=== PATIENT | female | born 1995 | race Caucasian/White ===

== ENCOUNTER 2018-01-01 19:17 | Observation (INO) ==
--- NOTE | 2018-01-01 19:23 | Emergency Department Note ---
Disposition Clinical Impression: Hyperemesis arising during Disposition: Admitted As Inpatient Condition: Good General Adult HPI - General Stated complaint: nausea/vomiting Source: patient Nursing Notes Reviewed: Yes Vital Signs Reviewed: Yes - History of Present Illness HPI Narrative: 22 year old female who is 15 weeks , , with history of PCOS, Endometriosis, and Musculoskeletal disorder (states she does not know the name of the diagnosis, however her tendons and muscles in her foot detached at age 10 ; she was evaluated by a physician when she was younger and was not given a final diagnosis; her ARBORIST REPRESENTATIVE states as a result this is a high risk and there is a risk her placenta may detach). Patient was evaluated in [place] and again at [place] ED for 6-8 episodes of nonbloody, nonbilious vomiting for the past 2 days, which is unrelated to eating. Patient's SOCK MENDER was contacted by the ED physician yesterday, who suggested admission to the hospital, however patient reported feeling better and requested to be discharged. States she vomited 6 times today, and is unable to keep any liquids or foods down. Also reports "feeling dehydrated", reports having a dry mouth, and urinating much less than usual (usually urinates every 30 minutes, and is now urinating every 1.5 hours with decreased volume and a dark color; denies hematuria, dysuria, or suprapubic pain; She also reports having a fever of 102.3F 2 nights ago, which resolved spontaneously; and a cough, productive of yellow sputum for the past 3 days. Did not receive any imaging. Patient denies chills, myalgias, arthralgias; diarrhea, hematochezia, melena; - Related Data Home Medications Medication Instructions Recorded Confirmed Pnv with Ca,No.72/Iron/FA [Pnv 1 each PO DAILY 12/31/17 01/01/18 Plus Multivit Tab] Promethazine [Phenergan] 25 mg PO Q6HR 12/31/17 01/01/18 Previous Rx's Medication Instructions Recorded Ondansetron ODT [Zofran ODT] 4 mg SL Q6HR PRN #14 tab.rapdis 12/31/17 Allergies Allergy/AdvReac Type Severity Reaction Status Date / Time clindamycin Allergy Difficulty Verified 01/01/18 19:20 Swallowing Minocycline Allergy Rash Verified 01/01/18 19:20 Penicillins [PCN] Allergy Rash Verified 01/01/18 19:20 All systems ED: reviewed and negative except as stated. Review of Systems: As Per HPI Constitutional: Reports: fever Cardiovascular: Denies: chest pain Respiratory: Reports: cough, sputum production. Denies: dyspnea, wheezes Gastrointestinal: Reports: abdominal pain, nausea, vomiting. Denies: hematemesis Genitourinary: Denies: urgency, dysuria, frequency, hematuria Musculoskeletal: Denies: back pain, neck pain Integumentary: Denies: rash Neurological: Denies: headache Past Medical History - Past Medical History Medical history: Reports: other Psychiatric history: Reports: depression SOCK MENDER history: Reports: endometriosis, polycystic ovary syndrome - Social History Smoking Status: Current every day smoker Smokeless Tobacco Status: No Alcohol use: Reports: none Drug use: Reports: none Physical Exam - General Limitations: no limitations General appearance: alert, in no apparent distress - Head Head exam: normocephalic - Eye Eye exam: Present: EOMI. Absent: scleral icterus - ENT ENT exam: mucous membranes dry - Neck Neck exam: Present: trachea midline - Chest Chest inspection: Present: symmetric chest wall rise - Respiratory Respiratory exam: Present: normal lung sounds bilaterally. Absent: respiratory distress, accessory muscle use - Cardiovascular Cardiovascular exam: Present: regular rate, normal rhythm, normal heart sounds - Abdominal Exam Abdominal exam: Present: soft, tenderness. Absent: distention, guarding, rebound, rigidity Abdominal tenderness: Present: epigastrium, mild - Extremities Exam Extremities exam: Present: normal capillary refill. Absent: pedal edema - Back Exam Back exam: Present: full ROM - Neurological Exam Neurological exam: Present: alert, oriented X3 - Psychiatric Psychiatric exam: Present: normal affect, normal mood - Skin Skin exam: Present: warm, dry, intact Course Vital Signs Temperature 98.5 F 01/01/18 19:20 Pulse Rate 87 01/01/18 19:20 Respiratory Rate 16 01/01/18 19:20 Blood Pressure 114/87 01/01/18 19:20 O2 Sat by Pulse Oximetry 97 01/01/18 19:20 Temperature 98.5 F 01/01/18 19:20 Pulse Rate 88 01/01/18 21:04 Respiratory Rate 16 01/01/18 21:04 Blood Pressure 105/55 08/20/18 21:04 O2 Sat by Pulse Oximetry 100 01/01/18 21:04 Oxygen Delivery Oxygen Delivery Room Air Medical Decision Making - MDM Narrative Medical decision making narrative: 22-year-old who is currently 15 weeks presents emergency department with concern for nausea, vomiting, cough, fever, sputum production. She is on his hyperemesis gravidarum yesterday. She was offered admission yesterday. This time, we will obtain a chest x-ray with shield due to possible concern for pneumonia. I did discuss exposure of radiation to patient. Patient will be getting Zofran and fluids here in the emergency department. She will also providing a urine sample. We will also be obtaining CBC, CMP, lipase. Patient currently requesting admission. All labs are within normal limits. Specifically, patient did not have any electrolyte abnormalities or an elevated hepatic transaminases. Chest x-ray did not reveal any evidence of pneumonia. I spoke with Maria A Izaguirre with SOCK MENDER on the phone. She agreed to be consulted on the case and had no further recommendations at this time. Patient admitted to the hospitalist. Patient agrees to plan. Hemodynamically stable and not in any acute distress at time of admission. Chest X-Ray 01/01/18 19:37 IMPRESSION: No acute findings D/ / Dang Willsi MD / Dang Willis MD Interpreting Provider: Dang Willis MD Vital Signs Temperature 98.5 F 01/01/18 19:20 Pulse Rate 87 01/01/18 19:20 Respiratory Rate 16 01/01/18 19:20 Blood Pressure 114/87 01/01/18 19:20 O2 Sat by Pulse Oximetry 97 01/01/18 19:20 Temperature 98.5 F 01/01/18 19:20 Pulse Rate 88 01/01/18 21:04 Respiratory Rate 16 01/01/18 21:04 Blood Pressure 105/55 01/01/18 21:04 O2 Sat by Pulse Oximetry 100 01/01/18 21:04 Oxygen Delivery Oxygen Delivery Room Air - Lab Data Result diagrams: 01/01/18 19:32 01/01/18 19:32 Lab Results 08/20/18 08/20/18 08/20/18 Range/Units 19:32 19:32 20:27 WBC 8.0 (4.3-11.1) K/mcL RBC 4.37 (3.82-4.97) M/mcL Hgb 12.6 D (11.5-15.4) g/dL Hct 36.9 (35.3-44.9) % MCV 84.4 (83.0-100.0) fL MCH 28.8 (28.0-33.3) pg MCHC 34.1 (31.6-35.5) g/dL RDW 14.9 H (11.5-14.5) % Plt Count 198 (140-400) K/mcL MPV 11.0 (9.4-12.4) fL Immature Gran % 0.4 (0-4) % Seg Neutrophils % 70.4 % Lymphocytes % 19.7 % Monocytes % 7.7 % Eosinophils % 1.4 % Basophils % 0.4 % Neutrophils # 5.6 (1.6-8.9) K/mcL Lymphocytes # 1.6 (0.6-4.6) K/mcL Monocytes # 0.6 (0.0-1.3) K/mcL Eosinophils # 0.1 (0.0-0.6) K/mcL Basophils # 0.0 (0.0-0.2) K/mcL Sodium 135 L (136-145) mEq/L Potassium 3.6 (3.5-5.1) mEq/L Chloride 108 H (98-107) mEq/L Carbon Dioxide 20 L (23-29) mEq/L BUN 6 (6-20) mg/dL Creatinine 0.37 L (0.60-1.20) mg/dL Est GFR ( Amer) > 60 (> 60) Est GFR (Non-Af Amer) > 60 (> 60) BUN/Creatinine Ratio 16 (6-26) Glucose 101 (70-105) mg/dL Calculated Osmolality 278 L (280-300) Calcium 9.3 (8.6-10.3) mg/dL Total Bilirubin 0.3 (0.3-1.0) mg/dL AST 25 (13-39) Units/L ALT 28 (7-52) Units/L Alkaline Phosphatase 68 (34-104) Units/L Serum Total Protein 6.8 (6.4-8.9) g/dL Albumin 3.7 (3.5-5.7) g/dL Globulin 3.1 (2.4-3.5) g/dL Albumin/Globulin Ratio 1.2 (1.1-2.2) Lipase 16 (11-82) Units/L Urine Color Dark Yellow (Yellow) Urine Clarity Cloudy A (Clear) Urine pH 6.0 (5.0-8.0) pH Units Ur Specific [place] > 1.030 H (1.010-1.025) Urine Protein Trace (Neg-Trace) mg/dL Urine Glucose (UA) Normal (Normal) mg/dL Urine Ketones >=160 H (Negative) mg/dL Urine Blood Negative (Negative) Urine Nitrite Negative (Negative) Urine Bilirubin Small H (Negative) Urine Urobilinogen Normal (Normal) mg/dL Ur Leukocyte Esterase Small H (Negative) Urine Microscopic RBC 0-3 (0-3) per hpf Urine Microscopic WBC 15-30 H (0-3) per hpf Ur Squamous Epith Cells Many H (None-Few) per lpf Urine Bacteria Many H (None-Few) per hpf Hyaline Casts Few (None-Few) per lpf Urine Mucus Many H (Few) Ur Culture Indicated? NO. A (NO) Urine Test (Negative) 01/01/18 Range/Units 20:27 WBC (4.3-11.1) K/mcL RBC (3.82-4.97) M/mcL Hgb (11.5-15.4) g/dL Hct (35.3-44.9) % MCV (83.0-100.0) fL MCH (28.0-33.3) pg MCHC (31.6-35.5) g/dL RDW (11.5-14.5) % Plt Count (140-400) K/mcL MPV (9.4-12.4) fL Immature Gran % (0-4) % Seg Neutrophils % % Lymphocytes % % Monocytes % % Eosinophils % % Basophils % % Neutrophils # (1.6-8.9) K/mcL Lymphocytes # (0.6-4.6) K/mcL Monocytes # (0.0-1.3) K/mcL Eosinophils # (0.0-0.6) K/mcL Basophils # (0.0-0.2) K/mcL Sodium (136-145) mEq/L Potassium (3.5-5.1) mEq/L Chloride (98-107) mEq/L Carbon Dioxide (23-29) mEq/L BUN (6-20) mg/dL Creatinine (0.60-1.20) mg/dL Est GFR ( Amer) (> 60) Est GFR (Non-Af Amer) (> 60) BUN/Creatinine Ratio (6-26) Glucose (70-105) mg/dL Calculated Osmolality (280-300) Calcium (8.6-10.3) mg/dL Total Bilirubin (0.3-1.0) mg/dL AST (13-39) Units/L ALT (7-52) Units/L Alkaline Phosphatase (34-104) Units/L Serum Total Protein (6.4-8.9) g/dL Albumin (3.5-5.7) g/dL Globulin (2.4-3.5) g/dL Albumin/Globulin Ratio (1.1-2.2) Lipase (11-82) Units/L Urine Color (Yellow) Urine Clarity (Clear) Urine pH (5.0-8.0) pH Units Ur Specific [place] (1.010-1.025) Urine Protein (Neg-Trace) mg/dL Urine Glucose (UA) (Normal) mg/dL Urine Ketones (Negative) mg/dL Urine Blood (Negative) Urine Nitrite (Negative) Urine Bilirubin (Negative) Urine Urobilinogen (Normal) mg/dL Ur Leukocyte Esterase (Negative) Urine Microscopic RBC (0-3) per hpf Urine Microscopic WBC (0-3) per hpf Ur Squamous Epith Cells (None-Few) per lpf Urine Bacteria (None-Few) per hpf Hyaline Casts (None-Few) per lpf Urine Mucus (Few) Ur Culture Indicated? (NO) Urine Test Positive A (Negative)
[2018-01-01] MEDS ORDERED: 0.9 % Sodium Chloride 1,000 ML IVC ONE ×2 (19:25→20:39)
[2018-01-01] MEDS ORDERED: Ondansetron 4 MG/2 ML VIAL IVP ONE (19:25)
--- NOTE | 2018-01-01 19:34 | Emergency Department Note ---
Disposition Clinical Impression: Hyperemesis arising during Disposition: Still a Patient General Adult HPI - General Chief complaint: ED Abdominal Pain Stated complaint: nausea/vomiting Time Seen by Provider: 01/01/18 19:29 Source: patient Limitations: no limitations - History of Present Illness Pain Scale: 6 - Related Data Home Medications Medication Instructions Recorded Confirmed Pnv with Ca,No.72/Iron/FA [Pnv 1 each PO DAILY 12/31/17 01/01/18 Plus Multivit Tab] Promethazine [Phenergan] 25 mg PO Q6HR 12/31/17 01/01/18 Previous Rx's Medication Instructions Recorded Ondansetron ODT [Zofran ODT] 4 mg SL Q6HR PRN #14 tab.rapdis 12/31/17 Allergies Allergy/AdvReac Type Severity Reaction Status Date / Time clindamycin Allergy Difficulty Verified 01/01/18 19:20 Swallowing Minocycline Allergy Rash Verified 01/01/18 19:20 Penicillins [PCN] Allergy Rash Verified 01/01/18 19:20 Past Medical History - Past Medical History Medical history: Reports: other Psychiatric history: Reports: depression DRILL SERGEANT history: Reports: endometriosis, polycystic ovary syndrome - Social History Smoking Status: Current every day smoker Smokeless Tobacco Status: No Alcohol use: Reports: none Drug use: Reports: none Physical Exam - General Limitations: no limitations General appearance: alert, in no apparent distress Course - Reevaluation(s) Reevaluation #1: ED ATTESTATION NOTE: I examined this patient and my medical decision-making was reviewed with the Resident Physician/FIELD RADIO OPERATOR/PA/Student. I have personally performed a face to face evaluation on this patient & I agree with the documented findings, disposition and treatment plan as described except to the extent set forth below. Patient was seen with emergency medicine resident Gregg Cisneros please see copy of his note for details of this encounter Briefly: 21-year-old female 15 weeks seen twice for one for URI 1 for vomiting and nausea was offered admission yesterday declined returns with similar and worsening symptoms such status time Dr. Ordoñez is her OB. Patient denies fevers chills shortness breath or chest pain. Patient appears clinically dehydrated. Patient will get IV fluids anti-medics screening labs and admission. Admission disposition pending Time: 19:31 Vital Signs Temperature 98.5 F 01/01/18 19:20 Pulse Rate 87 01/01/18 19:20 Respiratory Rate 16 01/01/18 19:20 Blood Pressure 114/87 01/01/18 19:20 O2 Sat by Pulse Oximetry 97 01/01/18 19:20 Temperature 98.5 F 01/01/18 19:20 Pulse Rate 87 01/01/18 19:20 Respiratory Rate 16 01/01/18 19:20 Blood Pressure 114/87 01/01/18 19:20 O2 Sat by Pulse Oximetry 97 01/01/18 19:20 Oxygen Delivery Oxygen Delivery Room Air
[2018-01-01 19:45] LABS: Basophils % 0.4 %; Eosinophils # 0.1 K/mcL (0.0-0.6); Eosinophils % 1.4 %; Hematocrit 36.9 % (35.3-44.9); Immature Granulocytes % 0.4 % (0-4); Lymphocytes # 1.6 K/mcL (0.6-4.6); Lymphocytes % 19.7 %; Mean Corpuscular HGB Conc 34.1 g/dL (31.6-35.5); Mean Corpuscular Hemoglobin 28.8 pg (28.0-33.3); Mean Corpuscular Volume 84.4 fL (83.0-100.0); Monocytes # 0.6 K/mcL (0.0-1.3); Monocytes % 7.7 %; Neutrophils # 5.6 K/mcL (1.6-8.9); Platelet Count 198 K/mcL (140-400); Red Blood Count 4.37 M/mcL (3.82-4.97); Red Cell Distribution Width 14.9 % (11.5-14.5); Segmented Neutrophils % 70.4 %
[2018-01-01 19:46] LABS: Hemoglobin 12.6 g/dL (11.5-15.4)
[2018-01-01 20:11] LABS: Alanine Aminotransferase 28 Units/L (7-52); Albumin 3.7 g/dL (3.5-5.7); Albumin/Globulin Ratio 1.2 (1.1-2.2); Alkaline Phosphatase 68 Units/L (34-104); Aspartate Amino Transferase 25 Units/L (13-39); BUN/Creatinine Ratio 16 (6-26); Bilirubin,Total 0.3 mg/dL (0.3-1.0); Blood Urea Nitrogen 6 mg/dL (6-20); Calcium 9.3 mg/dL (8.6-10.3); Carbon Dioxide 20 mEq/L (23-29); Chloride 108 mEq/L (98-107); Globulin 3.1 g/dL (2.4-3.5); Glucose 101 mg/dL (70-105); Lipase 16 Units/L (11-82); Osmolality,Calculated 278 (280-300); Potassium 3.6 mEq/L (3.5-5.1); Sodium 135 mEq/L (136-145); Total Protein 6.8 g/dL (6.4-8.9); eGFR For Non-African Americans > 60 (> 60)
[2018-01-01 20:37] LABS: Bilirubin,Urine Small (Negative); Blood,Urine Negative (Negative); Clarity,Urine Cloudy (Clear); Color,Urine Dark Yellow (Yellow); Glucose,Urine (UA) Normal (Normal); Ketones,Urine >=160 mg/dL (Negative); Leukocyte Esterase,Urine Small (Negative); Nitrite,Urine Negative (Negative); Protein,Urine Trace mg/dL (Neg-Trace); Specific Gravity,Urine > 1.030 (1.010-1.025); Urobilinogen,Urine Normal (Normal)
[2018-01-01 20:39] LABS: Bacteria,Urine Many per hpf (None-Few); Hyaline Casts,Urine Few per lpf (None-Few); Squamous Epithelial Cell,Urine Many per lpf (None-Few); WBC,Urine 15-30 per hpf (0-3)
[2018-01-01 20:52] LABS: RBC,Urine 0-3 per hpf (0-3)
[2018-01-01 20:53] LABS: Mucus,Urine Many (Few)
--- NOTE | 2018-01-01 21:45 | Internal Med History&Physical ---
Date of Encounter: 01/01/18 Time of Encounter: 21:40 Internal Medicine - H&P: HPI Chief complaint: vomiting Admitted From: Home Plans for Post Hospital Care: Home History of present illness: Ms. Drew is a 22 year old lady with a past medical history of depression, who is currently at 15 weeks gestation, tobacco dependence and continues to smoke now during her who presents with 3 days of nausea, vomiting and oral intake intolerance. She states she was seen at [place] [facility] prior to coming here for these symptoms where she was prescribed "Robitussin w/ codeine" as she also complained of URI symptoms. She states that her vomiting has been incessant and has not had efficacy with oral Phenergan and Zofran that were prescribed to her. Here she was started on IVF and OB consult requested in the ER. At this time she denies being in pain but has some upper abdominal discomfort from the plethora of vomiting episodes. She denies noticing blood in the content. No diarrhea, dysuria, fever or chills associated. She was given IV anti-emetics and started on IVF w/ multivitamins for resuscitation and is admitted for ongoing observation. Past Med Surg Social Fam HX - Past Medical History Medical history: no medical history, other Additional medical history: orthostatic hypotension, PCOS, endometriaosis, "muscular skelater disorder" Psychiatric history: depression - Past Surgical History Additional surgical history: Left ankle reconstruction. Left wrist repair - Social History Smoking Status: Current every day smoker Smokeless Tobacco Status: No Alcohol use: none Drug use: none Internal Medicine - H&P: Meds Ondansetron ODT [Zofran ODT] 4 mg SL Q6HR PRN #14 tab.rapdis 12/31/17 [Rx] Pnv with Ca,No.72/Iron/FA [Pnv Plus Multivit Tab] 1 each PO DAILY 12/31 [History] Promethazine [Phenergan] 25 mg PO Q6HR 12/31/17 [History] 3 Allergy/AdvReac Type Severity Reaction Status Date / Time clindamycin Allergy Difficulty Verified 01/01/18 19:20 Swallowing Minocycline Allergy Rash Verified 01/01/18 19:20 Penicillins [PCN] Allergy Rash Verified 01/01/18 19:20 All Systems PM: A 10-system review of systems was performed and is negative for pertinent findings except as documented above in the HPI. - Constitutional Vitals: Temp Pulse Resp BP Pulse Ox 98.5 F 88 16 105/55 100 01/01/18 19:20 01/01/18 21:04 01/01/18 21:04 01/01/18 21:04 01/01/18 21:04 Exam: Vitals: Reviewed General: Well developed, comfortable in bed in NAD Skin: Warm and supple. HEENT: Moist mucous membranes. No conjunctivae pallor. Neck: No lymphadenopathy. No JVD. No carotid bruits. No palpable thyroid. Chest: Normal thoracic expansion. Normal breath sounds. Clear to auscultation. Heart: Normal S1 & S2; rhythmic. No rubs or murmurs. Abdomen: Non-distended, soft and mild discomfort on LUQ palpation. No peritoneal reaction. Extremities: No clubbing, cyanosis or edema. No calf tenderness. Normal distal pulses. Neurological: Awake, alert and oriented to person, place and time. No focal deficits. Psych: Affect appropriate. Internal Med - H&P Results - Labs CBC & Chem 7: 01/01/18 19:32 01/01/18 19:32 - Assessment and plan (1) Hyperemesis arising during Current Visit: Yes Status: Acute Assessment and plan: Uncomplicated noting the abscence of electrolytic imbalances and no evidence of KAMILLE. Will keep up with fluid losses via IVF and provide ondansetron or promethazine as needed. OB to evaluate in the morning. (2) Current Visit: Yes Status: Chronic Assessment and plan: Next ObGyn visit within 10 days. No complications thus far. Seen to have pyuria. Will send a urine culture to assess for asymptomatic bacteriuria which would be an indication for antimicrobial treatment. If negative, no treatment needed. Continue vitamins. Qualifiers: Weeks of gestation: 15 weeks Qualified Code(s): Z3A.15 - 15 weeks gestation of (3) Upper respiratory infection Current Visit: Yes Status: Acute Assessment and plan: Symptoms do not appear active at this time. Will continue to monitor. Symptomatic treatment as needed. Qualifiers: URI type: unspecified viral URI Qualified Code(s): J06.9 - Acute upper respiratory infection, unspecified (4) Tobacco dependence Current Visit: Yes Status: Chronic Assessment and plan: Counseled extensively on this noxious habit and the negative effects on her and her baby's health. Resources made available. - Time Spent With Patient Total time spent is greater than 50% in coordination of care (as documented) at patient's floor/unit and/or counseling patient: 25 - 35 minutes
[2018-01-01 22:10] LABS: Basophils % 0.4 %; Eosinophils # 0.1 K/mcL (0.0-0.6); Eosinophils % 1.2 %; Hematocrit 33.1 % (35.3-44.9); Immature Granulocytes % 0.3 % (0-4); Lymphocytes # 1.6 K/mcL (0.6-4.6); Mean Corpuscular HGB Conc 32.6 g/dL (31.6-35.5); Mean Corpuscular Hemoglobin 28.4 pg (28.0-33.3); Mean Corpuscular Volume 87.1 fL (83.0-100.0); Monocytes # 0.6 K/mcL (0.0-1.3); Monocytes % 7.5 %; Neutrophils # 5.1 K/mcL (1.6-8.9); Platelet Count 165 K/mcL (140-400); Red Cell Distribution Width 14.9 % (11.5-14.5); Segmented Neutrophils % 68.6 %
[2018-01-01 22:17] LABS: Hemoglobin 10.8 g/dL (11.5-15.4)
[2018-01-01] MEDS: Famotidine 20 MG/2 ML VIAL IVP SCH (22:17)
[2018-01-01] MEDS: Ondansetron 4 MG/2 ML VIAL IVP PRN (22:56)
[2018-01-01] MEDS: Thiamine (B-1) 100 MG, Folic Acid 1 MG, MVI, adult with vitamin K 10 ML in 0.9 % Sodi... IVPB SCH (23:44)
[2018-01-02] MEDS: *HR* Heparin 5,000 UNIT/ML VIAL SQ SCH ×2 (05:00→16:44)
[2018-01-02] MEDS: Famotidine 20 MG/2 ML VIAL IVP SCH ×2 (05:59→16:46)
[2018-01-02 06:34] LABS: BUN/Creatinine Ratio 11 (6-26); Blood Urea Nitrogen 4 mg/dL (6-20); Carbon Dioxide 19 mEq/L (23-29); Chloride 110 mEq/L (98-107); Glucose 80 mg/dL (70-105); Magnesium 1.7 mg/dL (1.6-2.6); Osmolality,Calculated 280 (280-300); Potassium 3.4 mEq/L (3.5-5.1); Sodium 137 mEq/L (136-145); eGFR For Non-African Americans > 60 (> 60)
[2018-01-02] MEDS: Ondansetron 4 MG/2 ML VIAL IVP PRN (06:44)
--- NOTE | 2018-01-02 06:56 | OB/GYN Consult Note ---
Date of Encounter: 01/02/18 Time of Encounter: 06:48 Assessment and Plan (1) 15 weeks gestation of Current Visit: Yes Status: Acute Patient admitted under hospitalist care anticipate discharge home today OB signed off at this time but available if needed (2) Tobacco dependence Current Visit: Yes Status: Chronic Smoking cessation discussed with patient along with risks related to (3) Cough Current Visit: No Status: Acute If cough continues patient can take OTC Robitussin (4) Nausea and vomiting Current Visit: No Status: Acute RX for Dicligis sent to patient's pharmacy May consider Reglan if nausea and vomiting continues Encouraged to maintain a clear liquid diet and advance as tolerated slowly Patient to follow up with Dr. Ordoñez as scheduled. Qualifiers: Vomiting type: cyclical vomiting Vomiting Intractability: non-intractable Qualified Code(s): G43.A0 - Cyclical vomiting, not intractable History of Present Illness Consult date: 01/02/18 Reason for consult: other (nause and vomiting, cough) Chief complaint: Nausea and Vomiting 15w1d gestational age History of present illness: Patient is a 22 year old b at 15w1d presented to ER , Patient was evaluated ER twice in past few days due to nausea and vomiting which is unrelated to eating. Patient was offered admission 2 days ago for management however, patient reported feeling better and requested to be discharged. States she vomited 6 times yesterday and once this morning. Patient reported "feeling dehydrated" yesterday but feels better after IV fluids this morning. Patient also reports having a fever of 102.3 a few days ago a cough with of yellow sputum for the past 3-4 days. Past Med Surg Social Fam HX - Past Medical History Source: patient Medical history: no medical history, other Additional medical history: orthostatic hypotension, PCOS, endometriosis, "muscular skeletal disorder" Psychiatric history: depression - Past Surgical History Additional surgical history: Left ankle reconstruction. Left wrist repair. laproscopy ovarian surgery. abcess removal of right under arm - Social History Smoking Status: Current every day smoker Packs per day: 1/3 Smokeless Tobacco Status: No Alcohol use: none Drug use: none - Family History Father Hx Family Endocrine Disorder: Yes Mother Hx Family Endocrine Disorder: Yes Medications and Allergies Ondansetron ODT [Zofran ODT] 4 mg SL Q6HR PRN #14 tab.rapdis 12/31/17 [Rx] Pnv with Ca,No.72/Iron/FA [Pnv Plus Multivit Tab] 1 each PO DAILY 12/31 [History] Promethazine [Phenergan] 25 mg PO Q6HR 12/31/17 [History] Doxylamine/Pyridoxine HCl [Diclegis Dr 10-10 mg Tablet] 2 each PO HS #60 tablet.dr 01/02/18 [Rx] 3 Allergy/AdvReac Type Severity Reaction Status Date / Time clindamycin Allergy Difficulty Verified 01/01/18 19:20 Swallowing Minocycline Allergy Rash Verified 01/01/18 19:20 Penicillins [PCN] Allergy Rash Verified 01/01/18 19:20 Review of Systems Constitutional: no chills, no fever(s), no headache(s) Cardiovascular: no chest pain, no edema Respiratory: cough (per HPI) Gastrointestinal: vomiting (reports last episode at 0630), no abdominal pain, no constipation, no diarrhea, no heartburn Genitourinary Female: no abnormal vaginal bleeding, no dysuria, no pelvic pain, no urinary frequency, no vaginal discharge, no vaginal odor, no vaginal pruritis Neurological: no dizziness, no headache(s) Exam - Vital Signs Vital signs: Initial Vital Signs Temp Pulse Resp BP Pulse Ox 98.5 F 87 16 114/87 97 01/01/18 19:20 01/01/18 19:20 01/01/18 19:20 01/01/18 19:20 01/01/18 19:20 - Constitutional Constitutional: well developed, well nourished, no acute distress, average body habitus - HEENT HEENT: Normocephaly, Mucus Membranes Moist - Neck Neck exam: full ROM, supple - Lungs Respiratory exam: CTAB - Cardiovascular Cardiovascular exam: RRR, +S1, +S2 - Abdomen Abdomen: Present: bowel sounds normal, gravid, non tender - Extremities Extremities exam: full ROM, normal capillary refill Deep Tendon Reflex Grade: 2+ Normal - Comments Comments: FHR 150 bpm per doppler Results Result Diagrams: 01/01/18 21:59 01/02/18 05:55 Abnormal lab results RBC 3.80 M/mcL (3.82-4.97) L 01/01/18 21:59 Hgb 10.8 g/dL (11.5-15.4) L D 01/01/18 21:59 Hct 33.1 % (35.3-44.9) L 01/01/18 21:59 RDW 14.9 % (11.5-14.5) H 18 21:59 Potassium 3.4 mEq/L (3.5-5.1) L 01/02/18 05:55 Chloride 110 mEq/L (98-107) H 01/02/18 05:55 Carbon Dioxide 19 mEq/L (23-29) L 01/02/18 05:55 BUN 4 mg/dL (6-20) L 01/02/18 05:55 Creatinine 0.35 mg/dL (0.60-1.20) L 01/02/18 05:55 Calcium 8.0 mg/dL (8.6-10.3) L 01/02/18 05:55 Urine Clarity Cloudy (Clear) A 01/01/18 20:27 Ur Specific [place] > 1.030 (1.010-1.025) H 01/01/18 20:27 Urine Ketones >=160 mg/dL (Negative) H 01/01/18 20:27 Urine Bilirubin Small (Negative) H 01/01/18 20:27 Ur Leukocyte Esterase Small (Negative) H 01/01/18 20:27 Urine Microscopic WBC 15-30 per hpf (0-3) H 01/01/18 20:27 Ur Squamous Epith Cells Many per lpf (None-Few) H 01/01/18 20:27 Urine Bacteria Many per hpf (None-Few) H 01/01/18 20:27 Urine Mucus Many (Few) H 01/01/18 20:27 Ur Culture Indicated? NO. (NO) A 01/01/18 20:27 Urine Test Positive (Negative) A 01/01/18 20:27 All other labs normal. Consult Discharge Plan - Plan Referrals: Lilian Ward, STRAIGHTEDGE MACHINE OPERATOR HELPER [Primary Care Provider] - Prescriptions: Doxylamine/Pyridoxine HCl [Sánchez Saunders 10-10 mg Tablet] 2 each PO HS #60 tablet.
[2018-01-02] MEDS ORDERED: Prenatal Vit/FA 1 EACH TABLET PO SCH (09:00)
--- NOTE | 2018-01-02 10:47 | Internal Med Progress Note ---
Hospitalist Progress Note - Encounter Date of Encounter: 01/02/18 Time of Encounter: 10:44 - Subjective Interval History: Patient with history of depression, smoking, PCO S, endometriosis patient is and admitted with 3 days of nausea and vomiting which was intractable started on IV hydration patient had been seen by [facility] in consultation This morning patient feels better had last nausea and vomiting about 6 AM this morning potassium at 3.4 magnesium 1.7 will continue IV hydration and replace electrolytes and reevaluate later on today and see if she is stable to be discharged - Exam Vitals: Temp Pulse Resp BP Pulse Ox 98.2 F 84 16 106/62 97 01/02/18 10:43 01/02/18 10:43 01/02/18 10:43 01/02/18 10:43 01/02/18 10:43 Exam: Vitals: Reviewed General: Well developed, comfortable in bed in NAD Skin: Warm and supple. HEENT: Moist mucous membranes. No conjunctivae pallor. Neck: No lymphadenopathy. No JVD. No carotid bruits. No palpable thyroid. Chest: Normal thoracic expansion. Normal breath sounds. Clear to auscultation. Heart: Normal S1 & S2; rhythmic. No rubs or murmurs. Abdomen: Non-distended, soft and mild discomfort on LUQ palpation. No peritoneal reaction. Extremities: No clubbing, cyanosis or edema. No calf tenderness. Normal distal pulses. Neurological: Awake, alert and oriented to person, place and time. No focal deficits. Psych: Affect appropriate. - Assessment and Plan (1) Upper respiratory infection Current Visit: Yes Status: Acute Assessment and Plan: likley viral cugh subsided (2) Cough Current Visit: No Status: Acute (3) Nausea and vomiting Current Visit: No Status: Acute Assessment and Plan: was intactable but now clinically much better (4) Hyperemesis arising during Current Visit: Yes Status: Acute (5) Tobacco dependence Current Visit: Yes Status: Chronic (6) 15 weeks gestation of Current Visit: Yes Status: Acute (7) Hypomagnesemia Current Visit: Yes Status: Acute Assessment and Plan: will replace mag and k as well - Time Spent with Patient Total time spent is greater than 50% in coordination of care (as documented) at patient's floor/unit and/or counseling patient: Internal Medicine: Result - Labs CBC & Chem 7: 01/01/18 21:59 01/02/18 05:55 Labs: Short CBC 01/01/18 Range/Units 21:59 WBC 7.5 (4.3-11.1) K/mcL Hgb 10.8 L D (11.5-15.4) g/dL Hct 33.1 L (35.3-44.9) % Plt Count 165 (140-400) K/mcL Neutrophils # 5.1 (1.6-8.9) K/mcL BMP 01/02/18 05:55 Sodium 137 Potassium 3.4 L Chloride 110 H Carbon Dioxide 19 L BUN 4 L Creatinine 0.35 L Glucose 80 Calcium 8.0 L Consult Discharge Plan - Plan Referrals: Lilian Ward CNP [Primary Care Provider] - Gerardo Ordoñez MD [Partnered Physician] - 01/10/18 2:30 pm Prescriptions: Doxylamine/Pyridoxine HCl [Diclegis Dr 10-10 mg Tablet] 2 each PO HS #60 tablet.dr (1) Upper respiratory infection Qualifiers: URI type: unspecified viral URI Qualified Code(s): J06.9 - Acute upper respiratory infection, unspecified (3) Nausea and vomiting Qualifiers: Vomiting type: cyclical vomiting Vomiting Intractability: non-intractable Qualified Code(s): G43.A0 - Cyclical vomiting, not intractable
[2018-01-02] MEDS ORDERED: Potassium Chloride 40 MEQ, Lidocaine 1% 2 ML in D5% in Water 500 ML IVPB ONE (10:50)
[2018-01-02] MEDS ORDERED: 0.9 % Sodium Chloride 1,000 ML IVC SCH (11:00)
[2018-01-02 15:19] VITALS: BP 93/61
[2018-01-02] MEDS: Thiamine (B-1) 100 MG, Folic Acid 1 MG, MVI, adult with vitamin K 10 ML in 0.9 % Sodi... IVPB SCH (16:47)
--- NOTE | 2018-01-02 17:17 | Discharge Summary ---
Orders not resulted at time of discharge: Pending orders 01/01/18 22:25 Culture,Urine [RM] Stat Date of Encounter: 01/02/18 Time of Encounter: 17:14 - Discharge Diagnosis (1) Upper respiratory infection Priority: Secondary Status: Acute Qualifiers: URI type: unspecified viral URI Qualified Code(s): J06.9 - Acute upper respiratory infection, unspecified (2) Cough Priority: Secondary Status: Acute (3) Nausea and vomiting Priority: Primary Status: Acute Qualifiers: Vomiting type: cyclical vomiting Vomiting Intractability: non-intractable Qualified Code(s): G43.A0 - Cyclical vomiting, not intractable (4) Hyperemesis arising during Priority: Secondary Status: Acute (5) Tobacco dependence Priority: Secondary Status: Chronic (6) 15 weeks gestation of Priority: Secondary Status: Acute (7) Hypomagnesemia Priority: Secondary Status: Acute Hospital course: Ms. Drew is a 22 year old female - Time Spent with Patient Total time spent providing and/or coordinating discharge services: Greater than 30 minutes - Discharge Medications Prescriptions: Doxylamine/Pyridoxine HCl [Sánchez Saunders 10-10 mg Tablet] 2 each PO HS #60 tablet. Home Medications: Ondansetron ODT [Zofran ODT] 4 mg SL Q6HR PRN #14 tab.rapdis 12/31/17 [Rx] Pnv with Ca,No.72/Iron/FA [Pnv Plus Multivit Tab] 1 each PO DAILY 12/31 [History] Promethazine [Phenergan] 25 mg PO Q6HR 12/31/17 [History] Doxylamine/Pyridoxine HCl [Sánchez Saunders 10-10 mg Tablet] 2 each PO HS #60 tablet. 01/02/18 [Rx] Allergies/Adverse Reactions: 3 Allergy/AdvReac Type Severity Reaction Status Date / Time clindamycin Allergy Difficulty Verified 01/01/18 19:20 Swallowing Minocycline Allergy Rash Verified 01/01/18 19:20 Penicillins [PCN] Allergy Rash Verified 01/01/18 19:20 Date of admission: 01/01/18 21:05 Primary care physician: Lilian Ward Discharging clinician: Yesy Bosch Anticipated date of discharge: 01/02/18 - Constitutional Vitals: Temp Pulse Resp BP Pulse Ox 99.4 F 76 15 93/61 96 01/02/18 15:18 01/02/18 15:18 01/02/18 15:18 01/02/18 15:18 01/02/18 15:18 Exam: Vitals: Reviewed General: Well developed, comfortable in bed in NAD Skin: Warm and supple. HEENT: Moist mucous membranes. No conjunctivae pallor. Neck: No lymphadenopathy. No JVD. No carotid bruits. No palpable thyroid. Chest: Normal thoracic expansion. Normal breath sounds. Clear to auscultation. Heart: Normal S1 & S2; rhythmic. No rubs or murmurs. Abdomen: Non-distended, soft and mild discomfort on LUQ palpation. No peritoneal reaction. Extremities: No clubbing, cyanosis or edema. No calf tenderness. Normal distal pulses. Neurological: Awake, alert and oriented to person, place and time. No focal deficits. Psych: Affect appropriate. - Patient Status Disposition: Home, Self-Care Functional capacity at discharge: independent ambulation Overall status at discharge: patient is progressing back to baseline - Discharge Instructions Follow Up With: Lilian Ward CNP [Primary Care Provider] - Gerardo Ordoñez MD [Partnered Physician] - 01/10/18 2:30 pm - Diet and Activity Activity: resume usual activities as tolerated Diet: advance to your usual diet
== END 2018-01-02 17:48 | disposition home or self-care (01) ==
LOC: 3BNU 19:17 → EMEROOARM 19:17 → 3BNU 21:28
PROVIDERS: ADMIT Internal Medicine; ATTEND Internal Medicine